=== PATIENT | female | born 1960 | race Two or more races ===

== ENCOUNTER 2023-08-21 12:27 | Emergency (ER) | payer OTHER ==
[~2023-08-21] VITALS: Ht 157.5 cm; Wt 61.4 kg
[2023-08-21 14:09] LABS: EOSINOPHILS % (AUTO) 0.1 % (1.0-6.0); HEMATOCRIT 42.3 % (36-46); HEMOGLOBIN 13.9 g/dL (12.0-16.0); LYMPHOCYTES # (AUTO) 3.6 K/uL (1.0-4.8); LYMPHOCYTES % (AUTO) 30.9 % (22.0-44.0); MEAN CORPUSCULAR HEMOGLOBIN 28.2 pg (26.0-34.0); MEAN CORPUSCULAR HGB CONC 32.8 G/dL (31.0-37.0); MEAN CORPUSCULAR VOLUME 86 fL (80-100); MONOCYTES # (AUTO) 0.9 K/uL (0.1-1.0); MONOCYTES % (AUTO) 7.5 % (2.0-9.0); NEUTROPHILS % (AUTO) 60.5 % (40.0-70.0); PLATELET COUNT (AUTO) 274 K/uL (150-450); RED BLOOD CELL COUNT(AUTO) 4.91 MIL/uL (4.00-5.20); RED CELL DISTRIBUTION WIDTH 13.8 % (11.5-14.5); WHITE BLOOD COUNT (AUTO) 11.5 K/uL (4.5-11.0)
[2023-08-21 14:19] LABS: ANION GAP 10 mmol/L (8-16); CALCIUM, TOTAL 8.9 mg/dL (8.8-10.5); CARBON DIOXIDE 28 mmol/L (22-29); CHLORIDE 105 mmol/L (98-107); GLOMERULAR FILTR. RATE CALC > 60 mL/min (>60); GLUCOSE,RANDOM 108 mg/dL (70-110); POTASSIUM 3.8 mmol/L (3.5-5.1); SODIUM SERUM 143 mmol/L (136-145); UREA NITROGEN, BLOOD 12 mg/dL (7-18)
[2023-08-21 14:27] LABS: TROPONIN I-HIGH SENSITIVITY 7 ng/L (<51)
[2023-08-21 14:33] LABS: ALANINE AMINOTRANSFERASE 39 U/L (12-78); ALBUMIN 3.7 g/dL (3.4-5.0); ALKALINE PHOSPHATASE 93 U/L (46-116); ASPARTATE AMINOTRANSFERASE 25 U/L (15-37); BILIRUBIN,TOTAL 0.8 mg/dL (0.1-1.0); LIPASE 64 U/L (16-77); TOTAL PROTEIN, SERUM 8.1 g/dL (6.4-8.2)
[2023-08-21 14:49] VITALS: BP 165/93; PULSE 92; RESP 16; TEMP 98.3
[2023-08-21 15:16] LABS: APPEARANCE,URINE CLEAR (CLEAR); BILIRUBIN,URINE NEGATIVE (NEGATIVE); COLOR,URINE COLORLESS (YELLOW); GLUCOSE, URINE (UA) NEGATIVE (NEGATIVE); KETONES,URINE NEGATIVE (NEGATIVE); LEUKOCYTE ESTERASE ,URINE NEGATIVE (NEGATIVE); NITRATE,URINE NEGATIVE (NEGATIVE); OCCULT BLOOD,URINE MODERATE (NEGATIVE); PH,URINE 6.5 (5.0-8.0); PROTEIN,URINE NEGATIVE (NEGATIVE); SPECIFIC GRAVITIY, URINE 1.012 (1.003-1.030); UROBILINOGEN,URINE <=1.0 mg/dL (<=1.0)
[2023-08-21 15:35] LABS: BACTERIA,URINE None Seen /HPF (None Seen); RBC,URINE 0-2 /HPF (0-2); WBC,URINE 0-2 /HPF (0-5)
[2023-08-21] MEDS: FAMOTIDINE 20 MG/2 ML VIAL IVP ONE (16:54)
[2023-08-21] MEDS: SODIUM CHLORIDE 0.9% 1,000 ML IV ONE (16:54)
[2023-08-21] MEDS ORDERED: LISI-661 PO (17:45)
[2023-08-21] MEDS ORDERED: ATOR40TA28 PO (17:45)
[2023-08-21] MEDS ORDERED: SEMA0.258 SQ (17:45)
[2023-08-21] MEDS ORDERED: ACET-2895 PO (17:45)
[2023-08-21] MEDS ORDERED: DICL100G60 TP (17:45)
[2023-08-21] MEDS ORDERED: LIDO1ADH83 TP (17:45)
[2023-08-21] MEDS ORDERED: SIME80TA13 PO (17:45)
[2023-08-21] MEDS: METOCLOPRAMIDE HCL 5 MG/ML 2 ML VIAL IVP ONE (18:00)
[2023-08-21] MEDS ORDERED: OMEP20 PO (18:58)
== END 2023-08-21 19:15 | disposition home or self-care (01) ==
LOC: EMS 12:27
DX: K29.70 Gastritis, unspecified, without bleeding (principal); B96.89 Other specified bacterial agents as the cause of diseases classified elsewhere; E11.9 Type 2 diabetes mellitus without complications; E78.00 Pure hypercholesterolemia, unspecified; I10 Essential (primary) hypertension; Z98.890 Other specified postprocedural states
CPT/HCPCS: 99285; 96374; 76705; 96361; 96375; 80053; 81001; 82962; 83605; 83690; 84484; 85025; 36415; 93005; J3490; J2765; J7030